=== PATIENT | female | born 1975 | race Caucasian/White ===

== ENCOUNTER 2018-08-23 03:39 | Emergency (ER) | payer OTHER, SELFPAY ==
[2018-08-23 03:40] VITALS: BP 98/67; PULSE 96; RESP 24; TEMP 36.6; O2SAT 99; BMI 33.5
[2018-08-23 03:45] VITALS: BP 98/67; PULSE 96; RESP 24; TEMP 36.6; O2SAT 99
--- NOTE | 2018-08-23 04:15 | CT_ITS ---
STUDY: CT ABDOMEN AND PELVIS WITHOUT CONTRAST REASON FOR EXAM: Female, 43 years old. Right flank pain. Nausea and vomiting RADIATION DOSAGE (If Supplied By Facility): CTDIvol = ( 16.38 ) mGy, DLP = ( 880.11 ) mGycm TECHNIQUE: Transaxial images were obtained from the dome of the diaphragm to the symphysis pubis without oral contrast, and without intravenous contrast. Sagittal and coronal images were reconstructed. Individualized dose optimization techniques were used for this CT. COMPARISON: None. FINDINGS: The visualized lung bases are unremarkable. The visualized portions of the heart are within normal limits. Normal liver. There are surgical clips in the gallbladder fossa consistent with a prior cholecystectomy. Normal spleen. Normal pancreas. Normal bilateral adrenal glands. Normal right kidney. Normal left kidney. Normal visualized stomach. Normal small intestine. There are multiple colonic diverticula consistent with diverticulosis. The appendix is visualized and appears normal. Normal abdominal aorta. Normal inferior vena cava. Normal retroperitoneum. Normal urinary bladder. Normal abdominal wall. Normal osseous structures. CT/Abdomen/Pelvis without Cont IMPRESSION: Colon diverticulosis without evidence of diverticulitis. Electronically Signed: Anmol Alba, at 5:27 EDT Tel , Service support ,
--- NOTE | 2018-08-23 04:16 | ED.VIS.GEN ---
History of Present Illness Chief Complaint: Abd Pain Informant: Patient Onset: Days - 2 Context: Gradual Onset Timing: Continuous Quality: ache and sharp Location: upper abd and right side, radiating into right low back/flank Current Severity: Severe Maximum Severity: Severe Worsened by: nothing Relieved by: nothing Associated Symptoms: n/v/d - watery nonbloody diarrhea. nonbloody emesis. Narrative: Subjective fevers and chills earlier. Initially felt like she had the stomach flu, but then pain started after the vomiting and diarrhea, and feels more like an episode of diverticulitis that she had on the right side of her abdomen/colon around 2 years ago. - Past Medical History (1) Asthma Status: Chronic (2) Chronic back pain Status: Chronic (3) Depression with anxiety Status: Chronic (4) Fibromyalgia Status: Chronic (5) History of DVT of lower extremity Status: Chronic (6) Migraine Status: Chronic Past Medical History - Allergies and Home Meds Allergies/Adverse Reactions: Allergies Iodinated Contrast- Oral and IV Dye [Iodinated Contrast Media - IV Dye] Allergy (Verified 08/23/18 03:45) Other BP DROPS OK WITH PRE-MEDS terbutaline sulfate [From Brethine] Allergy (Verified 08/23/18 03:45) Other BP DROPS Primary Care Physician: Care Physician,No Primary [Primary Care Provider] - Surgical History: adenoidectomy, cholecystectomy, hysterectomy, tonsillectomy, - - Cholecystectomy, T+A, BLTL, cataract, dental surgery. Smoking Status: Never smoker Drugs: None - Family History Maternal Family History: Reports: Cancer - Breast CA, Diabetes, Heart Disease Paternal Family History: Reports: No pertinent history Review of Systems General: Reports: Chills, Fever, Malaise. Denies: Sweats Eyes: Denies: Visual changes - bilaterally, Diplopia ENT: Denies: Rhinorrhea, Sore throat Cardiovascular: Denies: Chest pain, Palpitations Respiratory: Denies: Dyspnea, Cough, Dyspnea on exertion Gastrointestinal: Reports: Abdominal pain, Nausea, Vomiting, Diarrhea. Denies: Melena, Hematochezia Genitourinary: Denies: Dysuria, Hematuria, Frequency Musculoskeletal: Reports: Back pain. Denies: Neck pain, Swelling, Extremity Pain Skin: Denies: Rash, Wounds Neurological: Denies: Headache, Weakness, Numbness Physical Exam Vital Signs/Narrative: Vital Signs Temp Pulse Resp BP Pulse Ox 08/23/18 03:45 97.8 F 96 24 H 99 08/23/18 03:40 97.8 F 96 24 H 99 Inital Vital Signs reviewed: Yes General: Well nourished, Well developed, No Acute Distress Head: Normocephalic, Atraumatic Eyes: Perrl, EOMI ENT: Moist mucous membranes, No rhinorrhea Neck: Supple, Nontender Cardiovascular: Regular rate, Regular rhythm, No murmurs, Normal S1, Normal S2. Negative for: Tachycardia Respiratory: No distress, CTA bilaterally, Chest nontender Abdomen: Soft, Nondistended, Normal bowel sounds, Tender - throughout R abd and across upper abd; worst RUQ., Guarding - vol, RUQ only. Negative for: Rebound tenderness Back: Nontender, Normal Inspection. Negative for: CVA tenderness Extremities: Nontender, No edema Skin: Normal color, No rash, No Trauma Neurological: Alert, Oriented x3, Cranial nerves II-XII grossly intact, Normal Strength, Normal Sensation Psychological: Normal affect, Normal Mood Diagnostic/Tx/Re-eval Impressions Abdomen/Pelvis CT 08/23/18 04:15 IMPRESSION: Colon diverticulosis without evidence of diverticulitis. Electronically Signed: Anmol Alba, at 5:27 EDT Tel , Service support , 08/23/18 04:15 Abdomen/Pelvis without Cont [CT] Stat Laboratory Results 08/23/18 08/23/18 03:58 03:58 WBC 8.5 RBC 4.98 Hgb 14.5 Hct 42.7 MCV 85.7 MCH 29.1 MCHC 34.0 RDW 13.7 RDW Differential 41.8 Plt Count 292 MPV 10.1 Immature Gran % (Auto) 0.100 Neut % (Auto) 84.5 H Lymph % (Auto) 10.5 L Anderson % (Auto) 2.9 Eos % (Auto) 1.8 Baso % (Auto) 0.2 Absolute Neuts (auto) 7.2 Absolute Lymphs (auto) 0.89 Total Counted Not Reportable Sodium 141 Potassium 3.4 L Chloride 109 H Carbon Dioxide 26.0 Anion Gap 6 BUN 12 Creatinine 0.93 Estim Creat Clear Calc 77.06 Est GFR (MDRD) Af Amer 84 Est GFR (MDRD) Non-Af 69 BUN/Creatinine Ratio 12.9 Glucose 101 Calcium 8.4 L Total Bilirubin 0.40 AST 12 L ALT 17 Alkaline Phosphatase 73 Total Protein 7.5 Albumin 3.6 Globulin 3.9 Albumin/Globulin Ratio 0.9 Lipase 123 - Medical Decision Making Labs are unremarkable, no significant leukocytosis, and CT, which was performed without contrast due to an IV dye allergy, shows no evidence of diverticulitis although diverticulosis is noted. There is also no acute other pathology. She is improved after IV fluids, Zofran, and morphine although she is still having some discomfort and nausea. No more vomiting. She will be additionally given Phenergan and Bentyl, along with prescriptions for this. 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 Advised to follow-up with symptoms do not resolve after the weekend. She is comfortable with the plan. ED Disposition - Plan for ED Patient: Disposition: Home or Assisted Living Diagnosis: Gastroenteritis, Right sided abdominal pain, Diverticulosis Instructions: ED Gastroenteritis Viral, Abdominal Pain Prescriptions: Dicyclomine HCl [Bentyl] 20 mg PO Q6H PRN PRN #20 cap PRN Reason: abdominal cramping proMETHazine tablet [Phenergan] 25 mg PO Q6H PRN PRN #12 tab PRN Reason: Nausea Referrals: Wilian Charles MD [STAFF PHYSICIAN] - 3-5 Days if not improving
[2018-08-23] MEDS: Morphine 4 MG/ML Syringe IV (04:28)
[2018-08-23] MEDS: Ondansetron 4 MG/2 ML Vial IV (04:28)
[2018-08-23] MEDS: 0.9% Normal Saline 1,000 ML 1000 ML IV (04:28)
[2018-08-23 04:36] LABS: Absolute Lymphocyte Count 0.89 X10^3/ul (0.83-4.51); Absolute Neutrophil Count 7.2 X10^3/uL (2.0-7.7); Basophil# 0.02 X10^3/uL; Basophil% 0.2 % (0-1); Eosinophil# 0.15 X10^3/uL; Eosinophils% 1.8 % (0-5); Hematocrit 42.7 % (37-47); Hemoglobin 14.5 g/dl (12.0-15.0); Lymphocyte # 0.89 X10^3/ul (4.0); Lymphocyte % 10.5 % (19-41); Mean Corpuscular Hgb 29.1 pg (27.0-32.0); Mean Corpuscular Volume 85.7 fL (81-99); Mean Platelet Vol. 10.1 fl (6.2-12.0); Monocyte# 0.25 X10^3/uL; Monocyte% 2.9 % (0-10); Neutrophil # 7.17 X10^3/uL (2.7-7.7); Neutrophil % 84.5 % (47-70); Platelet Count 292 K/mm3 (150-450); RBC Distribution Width CV 13.7 % (11.6-14.6); RBC Distribution Width SD 41.8 fl (35.1-43.9); Red Blood Count 4.98 M/mm3 (4.2-5.4); White Blood Count 8.5 K/mm3 (4.4-11.0)
[2018-08-23 04:37] LABS: POSITIVE COUNT NO; POSITIVE DIFFERENTIAL NO; POSITIVE MORPHOLOGY NO
[2018-08-23 04:50] LABS: ALB/GLOB Ratio 0.9 RATIO (0.9-2.4); AST(SGOT) 12 U/L (15-37); Alanine Aminotransfer ALT/SGPT 17 U/L (13-56); Albumin, Serum 3.6 g/dL (3.2-5.0); Alkaline Phosphatase 73 U/L (45-117); Anion Gap 6 (5-15); BUN 12 mg/dL (7-18); BUN/Creat Ratio 12.9 RATIO (10-20); Calcium,Total 8.4 mg/dL (8.5-10.1); Chloride 109 mmol/L (98-107); Creatinine, Serum 0.93 mg/dL (0.55-1.02); EST Glomerular Filtration Rate 69 mL/min (>60); Est Glom Filt Rate - Afr Amer 84 mL/min (>60); Estimated Creatinine Clearance 77.06 ml/min; Globulin 3.9 g/dL (2.2-4.2); Glucose 101 mg/dL (74-106); Lipase 123 U/L (73-393); Potassium 3.4 mmol/L (3.5-5.1); Protein, Total 7.5 g/dL (6.4-8.2); Sodium Level 141 mmol/L (136-145)
[2018-08-23] MEDS: proMETHazine 25 MG/ML Syringe 6.25 MG IV (06:02)
[2018-08-23 06:04] VITALS: BP 94/55; PULSE 72; RESP 18; O2SAT 94
[2018-08-23] MEDS: Dicyclomine 10 MG Capsule PO (06:31)
--- NOTE | 2018-08-23 07:39 | ED.RN ---
pt resting quietly. woke pt, pt remains sleepy. states theres no way i can drive. pt reports no one was responding to her calls then she fell asleep. pt attempting to call again at this time
--- NOTE | 2018-08-23 08:00 | ED.RN ---
to be here at 0800. getting dressed.
== END 2018-08-23 08:13 | disposition home or self-care (01) ==
PROVIDERS: Emergency Provider Emergency Medicine
DX: K52.9 Noninfective gastroenteritis and colitis, unspecified (principal); K57.90 Diverticulosis of intestine, part unspecified, without perforation or abscess without bleeding; R10.9 Unspecified abdominal pain; Z90.49 Acquired absence of other specified parts of digestive tract; J45.909 Unspecified asthma, uncomplicated; M54.9 Dorsalgia, unspecified; G89.29 Other chronic pain; G43.809 Other migraine, not intractable, without status migrainosus; F41.8 Other specified anxiety disorders; M79.7 Fibromyalgia; Z86.718 Personal history of other venous thrombosis and embolism
CPT/HCPCS: 74176; 80053; 83690; 85025; 96361; 96374; 96375; 99284; J7030; J2405

== ENCOUNTER 2018-11-12 20:13 | Emergency (ER) | payer OTHER, SELFPAY ==
[2018-11-12 20:13] VITALS: BP 132/97; PULSE 94; RESP 22; TEMP 36.7; O2SAT 100; BMI 36.5
[2018-11-12] MEDS: LORazepam 1 MG Tablet PO (20:59)
--- NOTE | 2018-11-12 21:43 | ED.VISSUMM ---
- ER Visit Summary Date of Service: 11/12/18 Chief Complaint: Panic attack History of Present Illness: The patient is a 43 F with a panic attack. This was prompted by finding unresponsive patient in our parking lot. She was here with her son who is also a patient. He is here for mental health evaluation, and she is very stressed about this as well. She has a history of panic attack. Denies any other associated symptoms. Denies any suicidality. Physical Examination: Afebrile and vital signs unremarkable. Patient appears anxious and mildly tearful. She is otherwise alert and oriented. Heart regular. Lungs clear. Patient denies suicidal thoughts. Test Results: None indicated Emergency Department Course and Treatment: Patient was treated with Ativan. She responded well and was feeling better on reevaluation. I believe she is appropriate for further outpatient care. Return for any new or worsening issues. Treatment Plan: As above Disposition: Discharge Impression: 1. Panic episode This note was generated with [employer] dictation software. It may contain incorrect words, spelling, and punctuation that were not noted in review of the chart prior to signing ED Disposition - Plan for ED Patient: Referrals: Care Physician,No Primary [Primary Care Provider] -
--- NOTE | 2018-11-12 21:44 | ED.DEP ---
ED Disposition - Plan for ED Patient: Instructions: ED Panic Attack Referrals: Care Physician,No Primary [Primary Care Provider] -
== END 2018-11-12 22:28 | disposition home or self-care (01) ==
LOC: ED 21:34
PROVIDERS: Emergency Provider Emergency Medicine
DX: F41.0 Panic disorder [episodic paroxysmal anxiety] (principal); Z86.718 Personal history of other venous thrombosis and embolism; Z79.899 Other long term (current) drug therapy
CPT/HCPCS: 99283

== ENCOUNTER 2019-09-19 07:26 | Emergency (ER) | payer OTHER, SELFPAY ==
[2019-09-19 07:27] VITALS: BP 126/94; PULSE 88; RESP 16; TEMP 36.9; O2SAT 99; BMI 38.0
--- NOTE | 2019-09-19 07:43 | ED.DCSUM_ITS ---
- ER Visit Summary Date of Service: 09/19/19 Chief Complaint: [Right shoulder pain, right back pain, and dysuria] History of Present Illness: The patient is a 44 F [presents to the emergency department some discomfort in her back for 3 days that is been intermittent. Patient states the pain is sharp and stabbing and can last up to 15 minutes at a time. Patient also has had some mild dysuria. She is concerned because she has had issues with kidney stones and had a stent last January. Patient also woke up this morning with severe pain in her right shoulder that is worse with movement. Patient states that she has had problems and pain with her right shoulder from prior injury which caused a partial tear in her rotator cuff years ago related to a fall. She denies any new injury. Pain is severe and worse with movement. Patient did take 4 Advil at home. Patient denied any chest pain or shortness of breath and just feels like she may be a little bit anxious. Patient has history of asthma, obesity, DVT history, kidney stone history, migraine history, history of factor V Leiden deficiency. Patient not currently anticoagulated. She denies recent travel or surgery. She denies any fever. She denies any cough.] Physical Examination: [HEENT-PERRLA, EOMI. Cranial nerves II through XII grossly intact. TMs clear. Mucous membranes moist. No adenopathy. Cardiovascular-regular rate and rhythm without murmur or ectopy Lungs-clear to auscultation, chest wall stable without crepitus or subcu emphysema Abdomen-normoactive bowel sounds, soft, nontender, no rebound or rigidity, no peritoneal signs. Patient has some mild CVA tenderness on the right. Extremities-intact ?4, normal range of motion, normal pulses, atraumatic. Right shoulder-patient has diffuse tenderness over the right glenohumeral joint. Patient has some tenderness over the right trapezius and to the right cervical paraspinal musculature. Patient has pain with range of motion at the glenohumeral joint. She is neurovascularly intact. Extremities atraumatic.] Test Results: [Urinalysis obtained showed 100 leukocyte esterase as well as 10- 25 WBCs and +2 bacteria. Patient also had 10-25 epithelial cells.] Emergency Department Course and Treatment: [Given that patient symptomatic with some signs of urinary tract infection will treat with Bactrim for 3 days. Patient will be given a prescription for [place] for her shoulder pain.] Treatment Plan: [Patient will be treated with Bactrim and [place]. Patient referred to her orthopedic surgeon Dr. Mik Lundy for follow-up regarding her shoulder pain. I do not feel any imaging is indicated at this time.] Disposition: [Discharged home in stable condition] Impression: [UTI Right shoulder pain-acute on chronic] This note was generated with [employer] dictation software. It may contain incorrect words, spelling, and punctuation that were not noted in review of the chart prior to signing ED Disposition - Plan for ED Patient: Referrals: Care Physician,No Primary [Primary Care Provider] -
[2019-09-19 08:02] LABS: Mucous, Urine 0 SEEN /hpf (<or=2+); Red Blood Cells-Urine 0 SEEN /hpf (0-5)
[2019-09-19 08:12] LABS: Color, Urine Yellow (Yellow); Glucose, Dipstick Normal (Normal); Ketone-Dipstick Negative (Negative); Leukocyte Esterase-Dipstick 100 /ul (Negative); Nitrite-Dipstick Negative (Negative); Occult Blood-Urine 50 /ul (Negative); Protein-Dipstick 15 mg/dl (Negative); Specific Gravity, Urine 1.015 (1.002-1.030); Urine Bilirubin Dipstick Negative (Negative); Urine Clarity Sl. Cloudy (Clear); Urine Urobilinogen Normal (Normal)
[2019-09-19 08:22] LABS: Bacteria 2+ /hpf (None Seen); Squamous Epithelial Cells - UA 10-25 SEEN /hpf (5-10); White Blood Cells 10-25 SEEN /hpf (0-5)
--- NOTE | 2019-09-19 08:29 | ED.DEP ---
ED Disposition - Plan for ED Patient: Instructions: ED CYSTITIS Female Adult, ED Shoulder Pain Uncertain Cause Prescriptions: Smz/Tmp Ds [Bactrim Ds] 1 tab PO BID #6 tab Prescription Printed Hydrocodone Bitart/Apap 5-325 [[place] 5MG-325MG] 1 tab PO Q4H PRN PRN 2 Days #10 tab PRN Reason: Pain Prescription Printed Referrals: Care Physician,No Primary [Primary Care Provider] - 3-5 Days Mik Lundy DO [STAFF PHYSICIAN] - 3-5 Days
[2019-09-19] MEDS: Smz/Tmp Ds Tablet 1 TABLET PO (08:43)
== END 2019-09-19 08:46 | disposition home or self-care (01) ==
PROVIDERS: Emergency Provider Emergency Medicine
DX: N39.0 Urinary tract infection, site not specified (principal); M25.511 Pain in right shoulder; G89.29 Other chronic pain; D68.51 Activated protein C resistance; J45.909 Unspecified asthma, uncomplicated; Z86.718 Personal history of other venous thrombosis and embolism; Z87.442 Personal history of urinary calculi
CPT/HCPCS: 81001; 99283

== ENCOUNTER 2020-03-28 07:53 | Day surgery (SDC) | payer OTHER, SELFPAY ==
[2020-03-28] VITALS (7 sets, daily range): BP systolic 86–112; BP diastolic 53–74; PULSE 68–87; RESP 14–17; TEMP 36.7–37.6; O2SAT 91–96; BMI 37.7
--- NOTE | 2020-03-28 07:14 | RAD_ITS ---
PROCEDURE: Right C4-C7 facet joint block. DATE OF EXAMINATION: 03/28/2020 INDICATION: Female, 44 years old. Chronic neck pain. FLUOROSCOPY TIME (if supplied): (6 seconds) minutes/seconds. 5 intraoperative views were obtained. Intraoperative imaging provided for right C4-C7 facet joint block. RAD/Cerv Spine 2 or 3 Views IMPRESSION: Intraoperative imaging provided for right C4-C7 facet joint block. Electronically Signed: Issa Win, at 12:40 EDT , Service support ,
[2020-03-28] MEDS: Lactated Ringers 1,000 ML 100 ML IV (08:36)
[2020-03-28] MEDS: Bupivacaine 0.25% 30 ML Vial (09:05)
[2020-03-28] MEDS: MethylPREDNISolone Acetate 80 MG/ML Vial (09:05)
--- NOTE | 2020-03-28 16:25 | OP.PCM_ITS ---
Report of Operation Date of Procedure: 03/28/20 Description of Surgical Findings:: PREOPERATIVE DIAGNOSIS: Cervical spondylosis, cervical degenerative disc disease, cervical facet arthropathy POSTOPERATIVE DIAGNOSIS: Cervical spondylosis, cervical degenerative disc disease, cervical facet arthropathy PROCEDURE PERFORMED: Right-sided cervical facet steroid injection, C4, C5, C6, and C7. ANESTHESIA: MAC. BLOOD LOSS: Minimal. COMPLICATIONS: None. DESCRIPTION OF PROCEDURE: History and physical of today was reviewed. Risks and benefits of the procedure were explained. The patient understood and agreed to proceed. Informed consent was obtained. IV inserted per routine protocol. The patient was taken to the operating room and placed in the prone position with a pillow positioned underneath the chest. The neck area was prepped and draped in a sterile fashion using iodine x3. Under fluoroscopy guidance on an AP view, the C4 through C7 vertebral bodies were visualized at approximately 10- degree angle, starting on the RightC4, ending on the Right C7, passing through the C5 and C6. Using a 25-gauge 3-1/2-inch spinal needle, the needle was advanced via the skin. The tip of the needle was maneuvered and directed towards the epiphyseal junction of each corresponding vertebra. Once the tip of the needle was at the vicinity of the medial branch, the needle was pulled approximately 2 mm off the bone. After negative aspiration of blood or CSF and confirmation on AP, oblique as well as lateral view, a total of 4 mL of preservative-free 0.25% Marcaine with 80 mg of Depo-Medrol was injected in divided doses between those four levels. The needles were then removed intact. The patient experienced no sign or symptoms of intrathecal or intravascular injection. The patient experienced no paresthesia. The procedure was completed without any apparent difficulty or any complications. The patient appeared to tolerate it well. ASSESSMENT AND PLAN: This is a 44-year-old female with cervical spondylosis, cervical degenerative disc disease, cervical facet arthropathy status post right-sided cervical facet steroid injection C4-C7, patient will continue her current medications, patient will phone approximately 2 weeks for reevaluation.
== END 2020-03-28 10:13 | disposition home or self-care (01) ==
LOC: SDC 07:55 → AC 07:57
PROVIDERS: Referring Provider Anesthesiology Pain Medicine; Visit Provider Anesthesiology Pain Medicine
PROC: 3E0U3BZ Introduction of Anesthetic Agent into Joints, Percutaneous Approach (ICD-10-PCS; CPT 64490; principal; 2020-03-28 09:15)
DX: M47.812 Spondylosis without myelopathy or radiculopathy, cervical region (principal); G89.29 Other chronic pain; M79.7 Fibromyalgia; Z86.718 Personal history of other venous thrombosis and embolism; M54.12 Radiculopathy, cervical region; M48.02 Spinal stenosis, cervical region; M48.9 Spondylopathy, unspecified; M54.2 Cervicalgia; Z79.899 Other long term (current) drug therapy
CPT/HCPCS: 64491; 64492; 64490; 72040; J7120

== ENCOUNTER 2020-05-16 10:23 | Day surgery (SDC) | payer OTHER, SELFPAY ==
[2020-03-28 08:19] VITALS: BMI 37.7
[2020-05-16 10:30] VITALS: BP 110/75; PULSE 86; RESP 16; TEMP 37.3; O2SAT 96; BMI 37.6
--- NOTE | 2020-05-16 11:30 | RAD_ITS ---
STUDY: X-RAY - CERVICAL SPINE REASON FOR EXAM: Female, 45 years old. CERVICAL FACETS STEROID INJECTIONS C4-7 LEFT TECHNIQUE: 3 view(s) of the cervical spine were obtained. COMPARISON: None FINDINGS: Intraoperative imaging provided for left C4-C7 facet joint steroid injection. RAD/Cerv Spine 2 or 3 Views IMPRESSION: Intraoperative imaging provided for left C4-C7 facet steroid injection. Electronically Signed: Issa Win, at 15:44 EST , Service support ,
[2020-05-16] MEDS: Lactated Ringers 1,000 ML 100 ML IV (11:35)
[2020-05-16] MEDS: Bupivacaine 0.25% 30 ML Vial (11:38)
[2020-05-16] MEDS: MethylPREDNISolone Acetate 40 MG/ML Vial IM (11:41)
--- NOTE | 2020-05-16 11:44 | OP.PCM_ITS ---
Report of Operation Date of Procedure: 05/16/20 Description of Surgical Findings:: PREOPERATIVE DIAGNOSIS: Cervical spondylosis, cervical degenerative disc disease, cervical facet arthropathy POSTOPERATIVE DIAGNOSIS: Cervical spondylosis, cervical degenerative disc disease, cervical facet arthropathy PROCEDURE PERFORMED: Left-sided cervical facet steroid injection, C4, C5, C6, and C7. ANESTHESIA: MAC. BLOOD LOSS: Minimal. COMPLICATIONS: None. DESCRIPTION OF PROCEDURE: History and physical of today was reviewed. Risks and benefits of the procedure were explained. The patient understood and agreed to proceed. Informed consent was obtained. IV inserted per routine protocol. The patient was taken to the operating room and placed in the prone position with a pillow positioned underneath the chest. The neck area was prepped and draped in a sterile fashion using iodine x3. Under fluoroscopy guidance on an AP view, the C4 through C7 vertebral bodies were visualized at approximately 10- degree angle, starting on the left C4, ending on the left C7, passing through the C5 and C6. Using a 25-gauge 3-1/2-inch spinal needle, the needle was advanced via the skin. The tip of the needle was maneuvered and directed towards the epiphyseal junction of each corresponding vertebra. Once the tip of the needle was at the vicinity of the medial branch, the needle was pulled approximately 2 mm off the bone. After negative aspiration of blood or CSF and confirmation on AP, oblique as well as lateral view, a total of 4 mL of preservative-free 0.25% Marcaine with 80 mg of Depo-Medrol was injected in divided doses between those four levels. The needles were then removed intact. The patient experienced no sign or symptoms of intrathecal or intravascular injection. The patient experienced no paresthesia. The procedure was completed without any apparent difficulty or any complications. The patient appeared to tolerate it well. ASSESSMENT AND PLAN: This is a 45-year-old female with cervical spondylosis, cervical degenerative disc disease, cervical facet arthropathy status post left-sided cervical facet steroid injection C4-C7, patient will continue her current medications, patient will follow in approximately 2 weeks for reevaluation.
[2020-05-16 11:55] VITALS: BP 110/75; BP 125/88; BP 146/88; PULSE 78; PULSE 85; RESP 16; TEMP 36.3; O2SAT 96
[2020-05-16 12:01] VITALS: BP 110/75
[2020-05-16 12:10] VITALS: BP 110/75; BP 123/91; PULSE 80; RESP 16; O2SAT 100
[2020-05-16 12:31] VITALS: BP 110/75
== END 2020-05-16 12:33 | disposition home or self-care (01) ==
LOC: SDC 10:24 → AC 10:24
PROVIDERS: Referring Provider Anesthesiology Pain Medicine; Visit Provider Anesthesiology Pain Medicine
PROC: 3E0U3BZ Introduction of Anesthetic Agent into Joints, Percutaneous Approach (ICD-10-PCS; CPT 64490; principal; 2020-05-16 11:25)
DX: M47.812 Spondylosis without myelopathy or radiculopathy, cervical region (principal); Z86.718 Personal history of other venous thrombosis and embolism; Z87.442 Personal history of urinary calculi; D68.51 Activated protein C resistance; M54.12 Radiculopathy, cervical region; M48.02 Spinal stenosis, cervical region; M48.9 Spondylopathy, unspecified; M54.2 Cervicalgia; Z79.899 Other long term (current) drug therapy
CPT/HCPCS: 64491; 64490; 72040; J7120

== ENCOUNTER 2020-06-27 08:01 | Day surgery (SDC) | payer OTHER, SELFPAY ==
[2020-06-27] VITALS (8 sets, daily range): BP systolic 108–133; BP diastolic 63–86; PULSE 86–107; RESP 16; TEMP 36.9–37.1; O2SAT 94–97; BMI 38.0
[2020-06-27] MEDS: Lactated Ringers 1,000 ML 100 ML IV (08:40)
--- NOTE | 2020-06-27 09:35 | OP.PCM_ITS ---
Report of Operation Date of Procedure: 06/27/20 Description of Surgical Findings:: PREOPERATIVE DIAGNOSIS: Cervical spondylosis, cervical degenerative disc disease, cervical facet arthropathy POSTOPERATIVE DIAGNOSIS: Cervical spondylosis, cervical degenerative disc disease, cervical facet arthropathy PROCEDURE PERFORMED: Right-sided cervical facet steroid injection, C4, C5, C6, and C7. ANESTHESIA: MAC. BLOOD LOSS: Minimal. COMPLICATIONS: None. DESCRIPTION OF PROCEDURE: History and physical of today was reviewed. Risks and benefits of the procedure were explained. The patient understood and agreed to proceed. Informed consent was obtained. IV inserted per routine protocol. The patient was taken to the operating room and placed in the prone position with a pillow positioned underneath the chest. The neck area was prepped and draped in a sterile fashion using iodine x3. Under fluoroscopy guidance on an AP view, the C4 through C7 vertebral bodies were visualized at approximately 10- degree angle, starting on the RightC4, ending on the Right C7, passing through the C5 and C6. Using a 25-gauge 3-1/2-inch spinal needle, the needle was advanced via the skin. The tip of the needle was maneuvered and directed towards the epiphyseal junction of each corresponding vertebra. Once the tip of the needle was at the vicinity of the medial branch, the needle was pulled approximately 2 mm off the bone. After negative aspiration of blood or CSF and confirmation on AP, oblique as well as lateral view, a total of 4 mL of preservative-free 0.25% Marcaine with 80 mg of Depo-Medrol was injected in divided doses between those four levels. The needles were then removed intact. The patient experienced no sign or symptoms of intrathecal or intravascular injection. The patient experienced no paresthesia. The procedure was completed without any apparent difficulty or any complications. The patient appeared to tolerate it well. ASSESSMENT AND PLAN: This is a 45-year-old female with cervical spondylosis, cervical degenerative disc disease, cervical facet arthropathy status post right-sided cervical facet steroid injection C4-C7, patient will continue her current medications, patient will follow up in approximately 2 weeks for reevaluation.
--- NOTE | 2020-06-27 09:39 | RAD_ITS ---
PROCEDURE: Right cervical facet injection C4-C7. DATE OF EXAMINATION: 06/27/2020. INDICATION: Female, 45 years old. Chronic neck pain. FLUOROSCOPY TIME (if supplied): (8.7 seconds) minutes/seconds. 4 images were submitted. RAD/Cerv Spine 4 or 5 Views IMPRESSION: Intraoperative imaging provided for right C4-C7 cervical facet injection. Electronically Signed: Issa Win MD at 8:53 EST , Service support ,
[2020-06-27] MEDS: MethylPREDNISolone Acetate 40 MG/ML Vial IM (09:50)
[2020-06-27] MEDS: Bupivacaine 0.25% 30 ML Vial (09:51)
== END 2020-06-27 10:43 | disposition home or self-care (01) ==
LOC: SDC 08:02 → AC 08:02
PROVIDERS: Referring Provider Anesthesiology Pain Medicine; Visit Provider Anesthesiology Pain Medicine
PROC: 3E0U3BZ Introduction of Anesthetic Agent into Joints, Percutaneous Approach (ICD-10-PCS; CPT 64490; principal; 2020-06-27 09:35)
DX: M47.812 Spondylosis without myelopathy or radiculopathy, cervical region (principal); G89.29 Other chronic pain; M79.7 Fibromyalgia; Z87.442 Personal history of urinary calculi; Z86.718 Personal history of other venous thrombosis and embolism; M54.12 Radiculopathy, cervical region; M48.02 Spinal stenosis, cervical region; M48.9 Spondylopathy, unspecified; M54.2 Cervicalgia; Z79.899 Other long term (current) drug therapy
CPT/HCPCS: 64491; 64490; 72050; J7120; J2405

== ENCOUNTER 2020-08-22 06:22 | Day surgery (SDC) | payer OTHER, SELFPAY ==
[2020-06-27 08:35] VITALS: BMI 38.0
[2020-08-22] VITALS (14 sets, daily range): BP systolic 104–127; BP diastolic 78–104; PULSE 81–99; RESP 16–20; TEMP 36.2–37.3; O2SAT 92–99; BMI 38.0
[2020-08-22] MEDS: Lactated Ringers 1,000 ML 100 ML IV (07:09)
--- NOTE | 2020-08-22 07:32 | RAD_ITS ---
PROCEDURE: Right C4-C7 radiofrequency ablation. DATE OF EXAMINATION: 08/22/2020. INDICATION: Female, 45 years old. Chronic neck pain. FLUOROSCOPY TIME (if supplied): (32.4 seconds) minutes/seconds. 11 images were obtained. Intraoperative imaging provided for right C4-C7 radiofrequency ablation. RAD/Cerv Spine 2 or 3 Views IMPRESSION: Intraoperative imaging provided for right C4-C7 radiofrequency ablation. Electronically Signed: Issa Win MD at 9:33 EDT , Service support ,
[2020-08-22] MEDS: Lidocaine 1% (30 ml sdv) 30 ML Vial (07:45)
[2020-08-22] MEDS: MethylPREDNISolone Acetate 40 MG/ML Vial IM (07:45)
[2020-08-22] MEDS: Bupivacaine 0.25% 30 ML Vial (07:45)
--- NOTE | 2020-08-22 12:00 | OP.PCM_ITS ---
Report of Operation Date of Procedure: 08/22/20 Description of Surgical Findings:: PREOPERATIVE DIAGNOSIS: Cervical spondylosis, cervical degenerative disc disease, cervical facet arthropathy POSTOPERATIVE DIAGNOSIS: Cervical spondylosis, cervical degenerative disc disease, cervical facet arthropathy PROCEDURE PERFORMED: Right-sided cervical radiofrequency ablation of the medial branch at C4, C5, C6, and C7. ANESTHESIA: MAC. BLOOD LOSS: Minimal. COMPLICATIONS: None. DESCRIPTION OF PROCEDURE: History and physical of today was reviewed. Risks and benefits of the procedure were explained. The patient understood and agreed to proceed. Informed consent was obtained. IV inserted per routine protocol. The patient was taken to the operating room and placed in the prone position with a pillow positioned underneath the chest. The neck area was prepped and draped in a sterile fashion using iodine x3. Under fluoroscopy guidance on an AP view, the C4 through C7 vertebral bodies were visualized. The skin and subcu taneous tissue was anesthetized with approximately 10 mL of 1% lidocaine using a 25-gauge regular needle. Under direct visualization on fluoroscopy on a lateral view, using a 21-gauge 10-cm with a 10-mm curved active-tip radiofrequency ablation needle, the needle was passed through the skin. The tip of the needle was maneuvered and directed towards the epiphyseal junction of each corresponding vertebra, starting on the right C4, ending on the right C7, passing through the C5 and C6. Once the tip of the needle was at the vicinity of the medial branch and at the middle of the trapezoid on the lateral view, the stylette of each needle was then removed. After negative aspiration of blood or CSF and confirmation on AP, oblique as well as lateral view, radiofrequency ablation probe was then inserted at each level. Impedance was then recorded at C4 to be 314 ohm, at C5 to be 288 ohm, at C6 to be 281 ohm, and at C7 to be 274 ohm. Motor-evoked potential was then initiated to 1.5 volt without any motor response to each corresponding level or the right arm. The probe was then removed intact and a total of 4 mL of preservative-free 1% lidocaine was injected in divided doses between those four levels after negative aspiration of blood or CSF. After repeated confirmation, the radiofrequency ablation probe was then inserted and after repeated confirmation on AP, oblique as well as lateral view, radiofrequency ablation was then initiated to approximately 80 degree Celsius for 60 second at each level. Once concluded, the probe was then removed intact. A total of 4 mL of preservative-free 0.25% Marcaine with 40 mg of Depo-Medrol was injected in divided doses between those four levels. The needles were then removed intact. The patient experienced no sign or symptoms of intrathecal or intravascular injection. The patient experienced no paresthesia. The procedure was completed without any apparent difficulty or any complications. The patient appeared to tolerate it well. Sensory as well as motor exam was unchanged from prior to the procedure. ASSESSMENT AND PLAN: This is a 45-year-old female with cervical spondylosis, cervical degenerative disc disease, cervical facet arthropathy, status post right-sided cervical radiofrequency ablation of the medial branch at C4-C7, patient will continue her current medications, patient will follow in approximately 2 weeks for reevaluation.
== END 2020-08-22 10:33 | disposition home or self-care (01) ==
LOC: SDC 06:23 → AC 06:23
PROVIDERS: Referring Provider Anesthesiology Pain Medicine; Visit Provider Anesthesiology Pain Medicine
PROC: (CPT 64633; principal; 2020-08-22 07:15)
DX: M47.812 Spondylosis without myelopathy or radiculopathy, cervical region (principal); G89.29 Other chronic pain; M54.12 Radiculopathy, cervical region; M48.02 Spinal stenosis, cervical region; M48.9 Spondylopathy, unspecified; M54.2 Cervicalgia; Z79.899 Other long term (current) drug therapy; M79.7 Fibromyalgia; Z86.718 Personal history of other venous thrombosis and embolism; D68.51 Activated protein C resistance
CPT/HCPCS: 01936; 64633; 64634; 72040; 76000; J7120

== ENCOUNTER 2020-10-10 09:46 | Day surgery (SDC) | payer OTHER, SELFPAY ==
[2020-08-22 06:58] VITALS: BMI 38.0
[2020-10-10] VITALS (8 sets, daily range): BP systolic 120–133; BP diastolic 83–93; PULSE 76–92; RESP 16; TEMP 36.4–37.7; O2SAT 92–97; BMI 36.6
[2020-10-10] MEDS: Lactated Ringers 1,000 ML 100 ML IV (10:37)
--- NOTE | 2020-10-10 10:54 | RAD_ITS ---
PROCEDURE: Left C4-C7 facet joint block. DATE OF EXAMINATION: 10/10/2020. INDICATION: Female, 45 years old. Chronic neck pain. FLUOROSCOPY TIME (if supplied): (10 seconds) minutes/seconds. 3 intraoperative images were obtained. RAD/Cerv Spine 4 or 5 Views IMPRESSION: Intraoperative imaging provided for left C4-C7 facet joint block. Electronically Signed: Issa Win MD at 15:13 EDT , Service support ,
[2020-10-10] MEDS: MethylPREDNISolone Acetate 80 MG/ML Vial (11:01)
[2020-10-10] MEDS: Bupivacaine 0.25% 30 ML Vial (11:01)
--- NOTE | 2020-10-10 15:24 | OP.PCM_ITS ---
Report of Operation Date of Procedure: 10/10/20 Pre-Operative Diagnosis: Cervical spondylosis, cervical degenerative disc disea se, cervical facet arthropathy Post-Operative Diagnosis: Cervical spondylosis, cervical degenerative disc disease, cervical facet arthropathy Surgery/Procedure Performed:: Left sided cervical facet steroid injection, C4, C5, C6, and C7. Description of Surgical Findings:: DESCRIPTION OF PROCEDURE: History and physical of today was reviewed. Risks and benefits of the procedure were explained. The patient understood and agreed to proceed. Informed consent was obtained. IV inserted per routine protocol. The patient was taken to the operating room and placed in the prone position with a pillow positioned underneath the chest. The neck area was prepped and draped in a sterile fashion using iodine x3. Under fluoroscopy guidance on an AP view, the C4 through C7 vertebral bodies were visualized at approximately 10- degree angle, starting on the left C4, ending on the left C7, passing through the C5 and C6. Using a 25-gauge 3-1/2-inch spinal needle, the needle was advanced via the skin. The tip of the needle was maneuvered and directed towards the epiphyseal junction of each corresponding vertebra. Once the tip of the needle was at the vicinity of the medial branch, the needle was pulled approximately 2 mm off the bone. After negative aspiration of blood or CSF and confirmation on AP, oblique as well as lateral view, a total of 4 mL of preservative-free 0.25% Marcaine with 80 mg of Depo-Medrol was injected in divided doses between those four levels. The needles were then removed intact. The patient experienced no sign or symptoms of intrathecal or intravascular injection. The patient experienced no paresthesia. The procedure was completed without any apparent difficulty or any complications. The patient appeared to tolerate it well. ASSESSMENT AND PLAN: This is a 45-year-old female with cervical spondylosis, cervical degenerative disc disease, cervical facet arthropathy status post left-sided cervical facet steroid injection C4-C7, patient will continue her current medications, patient will follow in approximately 2 weeks for reevaluation. Type of Anesthesia: MAC Estimated Blood Loss (mL): Minimal Complications None
== END 2020-10-10 12:09 | disposition home or self-care (01) ==
LOC: SDC 09:47 → AC 09:48
PROVIDERS: PCP Family Medicine Sports Medicine; Referring Provider Anesthesiology Pain Medicine; Visit Provider Anesthesiology Pain Medicine
PROC: 3E0U3BZ Introduction of Anesthetic Agent into Joints, Percutaneous Approach (ICD-10-PCS; CPT 64490; principal; 2020-10-10 11:15)
DX: M47.812 Spondylosis without myelopathy or radiculopathy, cervical region (principal); G89.29 Other chronic pain; D68.51 Activated protein C resistance; Z86.718 Personal history of other venous thrombosis and embolism; Z87.442 Personal history of urinary calculi; M54.12 Radiculopathy, cervical region; M48.02 Spinal stenosis, cervical region; M48.9 Spondylopathy, unspecified; Z79.899 Other long term (current) drug therapy
CPT/HCPCS: 64491; 64492; 64490; 72050; J7120

== ENCOUNTER 2021-06-12 07:54 | Day surgery (SDC) | payer OTHER, SELFPAY ==
[2021-06-12] VITALS (10 sets, daily range): BP systolic 96–135; BP diastolic 64–93; PULSE 84–104; RESP 16; TEMP 36.1–36.8; O2SAT 92–100; BMI 38.5
--- NOTE | 2021-06-12 07:58 | PCM.HP.BLA ---
History and Physical Date of Admission: 06/12/21 Chief Complaint: Medication refill History of Present Illness: This is a 46 Y/O female who was evaluated via phone for a follow up due pt's acute illness. Pain: neck,right shoulder,right hand Quality: constant,varies in intensity Region: Pain in the neck into the right shoulder and will radiate down right arm with numbness in her fingers. Severity: aching,occasional sharp,tingling/numbness Timin07/2013 but has gotten worse recently (fell on ice) Aggravated by: physical labor,moving things Relieved by: heat,rest,jacuzzi Pain score (out of 10): 810 Other info: Follow up for right side neck pain that radiates to bilateral shoulder but right is worse. States she has pain on left side as well but right is worse. Reports numbness in fingers on right hand. States she has trouble sleeping. Needs refills. Review of Systems: Reports a fever. and headache. Denies chills, vision or hearing problems.Reports weight loss.Notes SOB and chest pressure. No pnd, orthopnea, or peripheral edema.They note no lumps or swollen glands, no new rashes, changing moles, or change in bowel or bladder function. Mood has been stable. Past Medical History: h/o fibromyalgia h/o migraines h/o DVT (multiple) h/o mass in abdomen h/o sports related injury 1988 h/o softball injury to lt knee h/o rt shoulder,rt arm,rt hip,lt knee injury 06/22/13 (fall on ice) h/o heart rhythm issue (PVC) h/o kidney stones h/o anxiety h/o Factor V Leiden h/o tumor-pituitary gland 2020 s/p tubal ligation 1992 s/p lou eye cataract surgery 2010 s/p Cholecystectomy 2013 s/p adenoidectomy s/p left knee arthroscopy 2014 s/p hysterectomy s/p heart ablation 2019 Family History: ======== Structured Family History ======== Mother: Heart disease, Cancer, Bleeding disorder Social History: [Tobacco: Never smoker Pipe Smoker: No Cigar Smoker: No Chewing Tobacco User: No Electronic Cigarette User: No] Living situation: Occupation: Self employed Tobacco: Denies EtOH: Occasional Rec. drugs: Denies Allergies: Iodine, Breathine, Morphine Medications: 1) cyclobenzaprine 10 mg oral tablet, Take1 tablet by mouth tid prn 2) Cymbalta 60 mg oral delayed release capsule, Take 1 tablet by mouth once daily 3) Eliquis 5 mg oral tablet, Take 1 tablet by mouth 2 times a Day 4) gabapentin 400 mg oral capsule, 1 capsule po in am and 2 capsules in pm 5) Lidocaine Pain Relief 5% External Patch, apply 1 patch to the affected area daily 12 hrs on 12 hrs off 6) oxyCODONE 5 mg oral capsule, 1 tablet po up to bid as needed for BTP 7) temazepam 30 mg oral capsule, 1 capsule po qhs as needed for sleep Physical Examination: Wt: 259 lb Ht/Ln: 68 in BMI: 39.4 BP: 141/93 Pulse: 89 RR: 16 Temp: 96.6F Well nourished and well developed in no acute distress. Alert and oriented to person, place and time. Affect is normal and appropriate. Mucosa pink and moist. Respirations even and unlabored. Neck is supple without significant lymphadenopathy or thyromegaly. Abdomen soft & non-tender. No HSM or masses appreciated. Extremities show no cyanosis, clubbing, or edema. Bilateral cervical facet challenge is positive Cervical paraspinal muscle tenderness Cervical ROM is limited due to pain. Motor and sensory exam is unchanged. Goals: Health Concerns: Assessment & Plan: # Cervical spondylosis (M47.812): # Cervical radiculopathy (M54.12): # Cervical spinal stenosis (M48.02): # Arthropathy of cervical spine facet joint (M48.9): # Cervical facet joint pain (M54.2): # Other termite renewal inspector (current) drug therapy (Z79.899): PRESCRIBE: oxyCODONE 5 mg oral capsule, 1 tablet po up to bid as needed for BTP, # 30, RF: 0. (Transmitted by KAYLA KENYON NP) PRESCRIBE: gabapentin 400 mg oral capsule, 1 capsule po in am and 2 capsules in pm, # 90, RF: 0. (Transmitted by KAYLA KENYON NP) PRESCRIBE: cyclobenzaprine 10 mg oral tablet, Take1 tablet by mouth tid prn, # 50, RF: 0. (Transmitted by KAYLA KENYON NP) PRESCRIBE: Lidocaine Pain Relief 5% External Patch, apply 1 patch to the affected area daily 12 hrs on 12 hrs off, # 30, RF: 0 Continue current medication regime. OARRS was reviewed today. UDS was performed today and will be reviewed on the next encounter to monitor pt medications compliance SOAPP score is 3 Pt is being seen by Dr Chappell for her neck pain, he is considering nerve impingement MRI of the cervical spine was reviewed with the pt today and they appear to understand MRI of brain is to be repeated this month There are no signs of diversion or addiction with the pt, there is also no signs of abuse or misuse, continues to do well with their medications without any side effects, we will continue monitoring the pt closely. Reviewed with the pt today our opioid agreement and they appear to understand. PEG was reviewed today. Life style modifications were also discussed today and the pt appears to understand. Weight loss was recommended today through diet and exercise Risks and benefits of the above meds were discussed with the pt and they appear to understand. The common side effects of the medications were discussed and all of their questions and concerns were answered and they appear to understand Discussed natural and expected course of this diagnosis and need to alert me if symptoms do not follow expected course, or if any worse. Pt is to continue with her PT and HEP. Pt has tried multiple modalities, the pt is scheduled for a right cervical radio frequency ablation C4-C7 under fluoroscopy as the pt has had excellent relief from this procedure in the past however, the relief has subsided. We have discussed the risks, benefits as well as alternatives of the procedure and the patient appears to understand and would like to proceed with the above plan. The above plan was discussed today with the pt in details and they appear to understand and agrees to continue with the plan. PROVIDED: Patient Education (05/23/2021)
[2021-06-12] MEDS: Lactated Ringers 1,000 ML 15 ML IV (08:31)
[2021-06-12] MEDS: Bupivacaine 0.25% 30 ML Vial (09:09)
[2021-06-12] MEDS: MethylPREDNISolone Acetate 40 MG/ML Vial IM (09:09)
[2021-06-12] MEDS: Lidocaine 1% (30 ml sdv) 30 ML Vial (09:10)
--- NOTE | 2021-06-12 09:16 | RAD_ITS ---
STUDY: X-RAY - CERVICAL SPINE REASON FOR EXAM: Female, 46 years old. RADIO FREQ ABLATION C4-C7, RIGHT COMPARISON: None FINDINGS: Fluoroscopic views were obtained for intraoperative localization. Please refer to intraoperative report. RAD/Cerv Spine 4 or 5 Views IMPRESSION: Intraoperative localization. Electronically Signed: Rufino Cabrera MD at 10:27 EST Tel , Service support ,
--- NOTE | 2021-06-12 11:18 | OP.PCM_ITS ---
Report of Operation Date of Procedure: 06/12/21 Description of Surgical Findings:: PREOPERATIVE DIAGNOSIS: Cervical spondylosis, cervical degenerative disc disease, cervical facet arthropathy POSTOPERATIVE DIAGNOSIS: Cervical spondylosis, cervical degenerative disc disease, cervical facet arthropathy PROCEDURE PERFORMED: Right-sided radiofrequency ablation of the medial branch at C4, C5, C6, and C7. ANESTHESIA: MAC. BLOOD LOSS: Minimal. COMPLICATIONS: None. DESCRIPTION OF PROCEDURE: History and physical of today was reviewed. Risks and benefits of the procedure were explained. The patient understood and agreed to proceed. Informed consent was obtained. IV inserted per routine protocol. The patient was taken to the operating room and placed in the prone position with a pillow positioned underneath the chest. The neck area was prepped and draped in a sterile fashion using iodine x3. Under fluoroscopy guidance on an AP view, the C4 through C7 vertebral bodies were visualized. The skin and subcutaneous tissue was anesthetized with approximately 10 mL of 1% lidocaine using a 25-gauge regular needle. Under direct visualization on fluoroscopy on a lateral view, using a 21-gauge 10-cm with a 10-mm curved active-tip radiofrequency ablation needle, the needle was passed through the skin. The tip of the needle was maneuvered and directed towards the epiphyseal junction of each corresponding vertebra, starting on the right C4, ending on the right C7, passing through the C5 and C6. Once the tip of the needle was at the vicinity of the medial branch and at the middle of the trapezoid on the lateral view, the stylette of each needle was then removed. After negative aspiration of blood or CSF and confirmation on AP, oblique as well as lateral view, radiofrequency ablation probe was then inserted at each level. Impedance was then recorded at C4 to be 292 ohm, at C5 to be 284 ohm, at C6 to be 261 ohm, and at C7 to be 266 ohm. Motor-evoked potential was then initiated to 1.5 volt without any motor re sponse to each corresponding level or the right arm. The probe was then removed intact and a total of 4 mL of preservative-free 1% lidocaine was injected in divided doses between those four levels after negative aspiration of blood or CSF. After repeated confirmation, the radiofrequency ablation probe was then inserted and after repeated confirmation on AP, oblique as well as lateral view, radiofrequency ablation was then initiated to approximately 80 degree Celsius for 60 second at each level. Once concluded, the probe was then removed intact. A total of 4 mL of preservative-free 0.25% Marcaine with 40 mg of Depo-Medrol was injected in divided doses between those four levels. The needles were then removed intact. The patient experienced no sign or symptoms of intrathecal or intravascular injection. The patient experienced no paresthesia. The procedure was completed without any apparent difficulty or any complications. The patient appeared to tolerate it well. Sensory as well as motor exam was unchanged from prior to the procedure. ASSESSMENT AND PLAN: This is a 46-year-old female with cervical spondylosis, cervical degenerative disc disease, cervical facet arthropathy, status post right-sided cervical radiofrequency ablation of the medial branch C4-C7, patient will continue her current medications, patient will follow in approximately 2 weeks for reevaluation.
== END 2021-06-12 23:59 | disposition home or self-care (01) ==
LOC: SDC 08:03 → AC 08:05
PROVIDERS: PCP Family Medicine Sports Medicine; Referring Provider Anesthesiology Pain Medicine; Visit Provider Anesthesiology Pain Medicine
PROC: (CPT 64633; principal; 2021-06-12 09:25)
DX: M47.22 Other spondylosis with radiculopathy, cervical region (principal); D68.51 Activated protein C resistance; M48.02 Spinal stenosis, cervical region; Z79.899 Other long term (current) drug therapy; M25.511 Pain in right shoulder; M79.7 Fibromyalgia; M47.812 Spondylosis without myelopathy or radiculopathy, cervical region; M50.30 Other cervical disc degeneration, unspecified cervical region; Z86.718 Personal history of other venous thrombosis and embolism
CPT/HCPCS: 64633; 64634; 72050; 76000; J7120; J2405

== ENCOUNTER 2021-07-16 14:01 | Emergency (ER) | payer OTHER, SELFPAY ==
[2021-07-16 14:03] VITALS: BP 131/87; PULSE 101; RESP 17; TEMP 36.4; O2SAT 92; BMI 40.8
--- NOTE | 2021-07-16 14:20 | CT_ITS ---
STUDY: CT ABDOMEN AND PELVIS WITH CONTRAST REASON FOR EXAM: Female, 46 years old. abdominal pain RADIATION DOSAGE (If Supplied By Facility): CTDIvol = ( 18.30 ) mGy, DLP = ( 1356.47 ) mGycm TECHNIQUE: Transaxial images were obtained from the dome of the diaphragm to the symphysis pubis without oral contrast. IV 100mL Isovue-300 was administered. Sagittal and coronal images were reconstructed. Individualized dose optimization techniques were used for this CT. COMPARISON: None. FINDINGS: The visualized lung bases are unremarkable. Left lower lobe granulomatous 5 mm and 8 mm nodular present. The visualized portions of the heart are within normal limits. Normal liver. There is non-visualization of the gallbladder, which may be secondary to either contraction or a prior cholecystectomy. Normal spleen. Normal pancreas. Normal bilateral adrenal glands. Normal right kidney. Normal left kidney. Normal visualized stomach. Normal small intestine. Normal colon. The appendix is visualized and appears normal. Normal abdominal aorta. Normal inferior vena cava. Normal retroperitoneum. Normal urinary bladder. There is absence of the uterus consistent with a prior hysterectomy. Normal abdominal wall. Normal osseous structures. CT/Abdomen/Pelvis W IV Cont ONLY IMPRESSION: No evidence of acute intra-abdominal process or focal inflammation. Normal appendix. Electronically Signed: Ata Reis DO at 16:58 EST ,
--- NOTE | 2021-07-16 14:25 | ED.VIS.GI ---
HPI <MAGNO Romero - Last Filed: 07/16/21 17:28> HPI - GI History of Present Illness Chief Complaint: Abd Pain Narrative Narrative: 46-year-old female with PMH of HTN, migraines, diverticulitis presents with 5-day history of abdominal pain and constipation. She states she normally takes Colace with Percocet she is prescribed for chronic shoulder pain. However, over the last 5 days she has not been able to have a bowel movement and is not passing gas. Pain is worse with eating and is nauseated without vomiting. She has used laxatives and enemas without relief. Denies history of bowel obstruction. She states she had diverticulitis with a microperforation and a hysterectomy. PFSH <MAGNO Romero - Last Filed: 07/16/21 17:28> PFSH Home Medications temazepam [Restoril] 30 mg PO QHS 08/23/18 [History Last Taken 09/17/19] apixaban 5 mg PO BID 03/25/20 [History Last Taken 08/11/20] cyclobenzaprine 10 mg PO TID PRN PRN 03/25/20 [History Last Taken Unknown] gabapentin 400 mg PO BID 03/25/20 [History Last Taken Unknown] duloxetine [Cymbalta] 120 mg PO DAILY 10/10/20 [History Last Taken Unknown] clonazepam [Klonopin] 1 mg PO BID 07/16/21 [History Last Taken Unknown] gabapentin 800 mg PO QHS 07/16/21 [History Last Taken Unknown] hydrochlorothiazide 25 mg PO DAILY 07/16/21 [History Last Taken Unknown] lidocaine 1 patch TOPICAL PRN PRN 07/16/21 [History Last Taken Unknown] lorazepam [Ativan] 1 mg PO PRN PRN 07/16/21 [History Last Taken Unknown] ondansetron 4 mg PO PRN PRN 07/16/21 [History Last Taken Unknown] oxycodone 5 mg PO PRN PRN 07/16/21 [History Last Taken Unknown] topiramate [Topamax] 50 mg PO BID 07/16/21 [History Last Taken Unknown] Allergy/AdvReac Type Severity Reaction Status Date / Time Iodinated Contrast Media Allergy Other Verified 06/12/21 08:17 [Iodinated Contrast Media - IV Dye] morphine Allergy Swelling Verified 06/12/21 08:17 terbutaline sulfate Allergy Other Verified 06/12/21 08:17 [From Brethine] metoclopramide [From Reglan] AdvReac Other Verified 07/16/21 14:03 Social History Smoking Status: Never smoker ROS <MAGNO Romero - Last Filed: 07/16/21 17:28> ROS ED ROS Narrative Constitutional: Negative for fever, chills, malaise. Eyes: Negative for visual change. ENT: Negative for sore throat, ear pain, rhinorrhea. CVS: Negative for palpitations, chest pain, syncope. Respiratory: Negative for shortness of breath, cough, orthopnea. GI: Positive for abdominal pain, nausea, constipation. Negative for vomiting, diarrhea, melena, hematochezia. : Negative for dysuria, hematuria or frequency. Neuro: Negative for headache, motor/sensory dysfunction. Skin: Negative for rash, abscess, or wound. Heme: Negative for easy bruising, bleeding, lymphadenopathy. EXAM <MAGNO Romero - Last Filed: 07/16/21 17:28> Physical Exam Narrative Exam Narrative: CONST: Patient sitting in no acute distress. EYES: Normal inspection. ENT: Normal inspection, moist mucous membranes. NECK: Normal inspection. RESP: No respiratory distress, CTAB. CVS: Regular rate and rhythm, no murmur, no gallop. ABD: Soft with diffuse tenderness maximal in RLQ, no guarding or rebound, nondistended. Back: Normal inspection, no CVA tenderness. SKIN: Color normal, no rash, warm, dry, intact. EXTREMITIES: Normal appearance, no pedal edema. NEURO: Oriented x4. PSYCH: Normal affect. Const Vital Signs: 07/16/21 14:03 Temperature 97.6 F L Temperature Source Temporal Pulse Rate 101 H Respiratory Rate 17 Blood Pressure 131/87 H Blood Pressure Mean 101 Pulse Ox 92 Oxygen Delivery Method Room Air <Dr. Parker Pinzon DO - Last Filed: 07/16/21 21:35> Physical Exam Const Vital Signs: 07/16/21 14:03 Temperature 97.6 F L Temperature Source Temporal Pulse Rate 101 H Respiratory Rate 17 Blood Pressure 131/87 H Blood Pressure Mean 101 Pulse Ox 92 Oxygen Delivery Method Room Air MDM <MAGNO Romero - Last Filed: 07/16/21 17:28> MDM MDM Narrative Medical decision making narrative: Patient presents with abdominal pain and constipation. She appears well nontoxic. Vital signs are within normal limits. She has a soft abdomen with diffuse tenderness and no peritoneal signs. Labs show mild leukocytosis at 11 and hypokalemia of 3.1, otherwise unremarkable. UA is negative for infection. CT abdomen/pelvis shows no acute process but does have increased stool density on ED attending review. She will be prescribed magnesium citrate for constipation. She was counseled on signs that would warrant return and was discharged in stable condition. Diagnoses 1. Abdominal pain 2. Constipation Lab Data Labs: Laboratory Results - last 24 hr 07/16/21 07/16/21 07/16/21 14:25 14:33 14:33 WBC 11.2 H RBC 4.66 Hgb 13.0 Hct 38.7 MCV 83.0 MCH 27.9 MCHC 33.6 RDW Std Deviation 40.5 RDW Coeff of Mauro 13.5 Plt Count 445 MPV 9.1 Immature Gran % (Auto) 0.400 Neut % (Auto) 55.3 Lymph % (Auto) 35.3 [place] % (Auto) 5.5 Eos % (Auto) 3.1 Baso % (Auto) 0.4 Absolute Neuts (auto) 6.2 Absolute Lymphs (auto) 3.94 Nucleated RBC % 0 Sodium 136 Potassium 3.1 L Chloride 98 Carbon Dioxide 32.0 Anion Gap 6 BUN 9 Creatinine 0.78 Estim Creat Clear Calc 85.77 Est GFR (MDRD) Af Amer 101 Est GFR (MDRD) Non-Af 83 BUN/Creatinine Ratio 11.5 Glucose 97 Calcium 9.0 Urine Color Straw Urine Clarity Clear Urine pH 7.0 Ur Specific [place] 1.005 Urine Protein Negative Urine Glucose (UA) Normal Urine Ketones Negative Urine Occult Blood Negative Urine Nitrite Negative Urine Bilirubin Negative Urine Urobilinogen Normal Ur Leukocyte Esterase Negative Urine RBC 0 SEEN Urine WBC 0 SEEN Ur Squamous Epith Cells 0-5 SEEN Urine Bacteria 0 SEEN Urine Mucus 0 SEEN Radiography Diagnostic Testing: Clinical Impression(s) from Imaging Studies Abdomen/Pelvis CT 07/16/21 14:20 IMPRESSION: No evidence of acute intra-abdominal process or focal inflammation. Normal appendix. Electronically Signed: Ata Reis DO at 16:58 EST , <Dr. Parker Pinzon, DO - Last Filed: 07/16/21 21:35> [facility] Narrative Medical decision making narrative: Patient seen and evaluated with the PA. I agree with her history and physical exam. Patient having very mild tenderness but abdomen is nonperitoneal. We obtained blood work which is fairly unremarkable. Her CBC does show a slight leukocytosis 11.2 without a left shift. Urinalysis is negative. CT of the abdomen pelvis was performed and is negative for acute intra-abdominal process. Patient still having some discomfort. I had a long discussion with her about constipation and she states that she has been trying enemas at home but not been able to have any more significant bowel movements. Patient will be given magnesium citrate to try at home since her work-up is ultimately negative. She is given return precautions. Impression: 1. Abdominal pain Lab Data Attestation: I reviewed the patient's lab results. Labs: Laboratory Results - last 24 hr 07/16/21 07/16/21 07/16/21 14:25 14:33 14:33 WBC 11.2 H RBC 4.66 Hgb 13.0 Hct 38.7 MCV 83.0 MCH 27.9 MCHC 33.6 RDW Std Deviation 40.5 RDW Coeff of Mauro 13.5 Plt Count 445 MPV 9.1 Immature Gran % (Auto) 0.400 Neut % (Auto) 55.3 Lymph % (Auto) 35.3 [place] % (Auto) 5.5 Eos % (Auto) 3.1 Baso % (Auto) 0.4 Absolute Neuts (auto) 6.2 Absolute Lymphs (auto) 3.94 Nucleated RBC % 0 Sodium 136 Potassium 3.1 L Chloride 98 Carbon Dioxide 32.0 Anion Gap 6 BUN 9 Creatinine 0.78 Estim Creat Clear Calc 85.77 Est GFR (MDRD) Af Amer 101 Est GFR (MDRD) Non-Af 83 BUN/Creatinine Ratio 11.5 Glucose 97 Calcium 9.0 Urine Color Straw Urine Clarity Clear Urine pH 7.0 Ur Specific [place] 1.005 Urine Protein Negative Urine Glucose (UA) Normal Urine Ketones Negative Urine Occult Blood Negative Urine Nitrite Negative Urine Bilirubin Negative Urine Urobilinogen Normal Ur Leukocyte Esterase Negative Urine RBC 0 SEEN Urine WBC 0 SEEN Ur Squamous Epith Cells 0-5 SEEN Urine Bacteria 0 SEEN Urine Mucus 0 SEEN Radiography Diagnostic Testing: Clinical Impression(s) from Imaging Studies Abdomen/Pelvis CT 07/16/21 14:20 IMPRESSION: No evidence of acute intra-abdominal process or focal inflammation. Normal appendix. Electronically Signed: Ata Reis DO at 16:58 EST Reading Location ID and State: [facility] / [place] , Service support , Discharge Plan Triage Chief Complaint: Abd Pain ED Provider: Isabella Benítez Dx/Rx/DC Orders Instructions: ED Abdominal Pain Unkn Cause Fem, ED Constipation (Adult) Prescriptions: No Action temazepam [Restoril] 30 MG capsule 30 mg PO QHS RF: 0 cyclobenzaprine 10 MG tablet 10 mg PO TID PRN PRN (Reason: Pain 1-10 Or Fever) RF: 0 gabapentin 100 MG capsule 400 mg PO BID RF: 0 apixaban 5 MG tablet 5 mg PO BID RF: 0 duloxetine [Cymbalta] 30 mg Capsule,Delayed Release(Dr/Ec) 120 mg PO DAILY RF: 0 gabapentin 400 mg capsule 800 mg PO QHS RF: 0 clonazepam [Klonopin] 1 mg Tablet 1 mg PO BID RF: 0 lidocaine 5 % adhesive patch,medicated 1 patch topical PRN PRN (Reason: Pain) RF: 0 hydrochlorothiazide 25 mg Tablet 25 mg PO DAILY RF: 0 lorazepam [Ativan] 1 mg Tablet 1 mg PO PRN PRN (Reason: Anxiety) RF: 0 ondansetron 4 mg tablet,disintegrating 4 mg PO PRN PRN (Reason: Nausea) RF: 0 oxycodone 5 mg tablet 5 mg PO PRN PRN (Reason: Pain) RF: 0 topiramate [Topamax] 50 mg Tablet 50 mg PO BID RF: 0 Primary Care Provider: Liliane Hahn Referrals: Liliane Hahn MD [Primary Care Provider] - Disposition Disposition: Home, Self Care Discharge Date/Time: 07/16/21 17:35
[2021-07-16] MEDS: Morphine 4 MG/ML Syringe IV (14:32)
[2021-07-16] MEDS: Ondansetron 4 MG/2 ML Vial IV ×2 (14:32→15:43)
[2021-07-16] MEDS: 0.9% Normal Saline 1,000 ML 1000 ML IV (14:34)
[2021-07-16 14:40] LABS: Bacteria 0 SEEN /hpf (None Seen); Mucous, Urine 0 SEEN /hpf (<or=2+); Red Blood Cells-Urine 0 SEEN /hpf (0-5); White Blood Cells 0 SEEN /hpf (0-5)
[2021-07-16 14:42] LABS: Absolute Lymphocyte Count 3.94 X10^3/uL (0.83-4.51); Absolute Neutrophil Count 6.2 X10^3/uL (2.0-7.7); Basophil# 0.05 X10^3/uL; Basophil% 0.4 % (0-1); Eosinophil# 0.35 X10^3/uL; Eosinophils% 3.1 % (0-5); Hematocrit 38.7 % (37-47); Lymphocyte # 3.94 X10^3/ul (0.83-4.51); Lymphocyte % 35.3 % (19-41); Mean Corp Hgb Conc 33.6 g/dL (32-36); Mean Corpuscular Hgb 27.9 pg (27.0-32.0); Mean Platelet Vol. 9.1 fl (6.2-12.0); Monocyte# 0.61 X10^3/uL; Monocyte% 5.5 % (0-10); NRBC Flagged by Analyzer 0 % (0-5); Neutrophil # 6.15 X10^3/uL (2.7-7.7); Neutrophil % 55.3 % (47-70); Platelet Count 445 K/mm3 (150-450); RBC Distribution Width CV 13.5 % (11.6-14.6); RBC Distribution Width SD 40.5 fl (35.1-43.9); Red Blood Count 4.66 M/mm3 (4.2-5.4); White Blood Count 11.2 K/mm3 (4.4-11.0)
[2021-07-16 14:43] LABS: Color, Urine Straw (Yellow); Glucose, Dipstick Normal (Normal); Ketone-Dipstick Negative (Negative); Leukocyte Esterase-Dipstick Negative /ul (Negative); Nitrite-Dipstick Negative (Negative); Occult Blood-Urine Negative /ul (Negative); Protein-Dipstick Negative (Negative); Specific Gravity, Urine 1.005 (1.002-1.030); Urine Bilirubin Dipstick Negative (Negative); Urine Clarity Clear (Clear); Urine Urobilinogen Normal (Normal)
[2021-07-16 14:48] LABS: Squamous Epithelial Cells - UA 0-5 SEEN /hpf (5-10)
[2021-07-16 14:56] LABS: Anion Gap 6 (5-15); BUN 9 mg/dL (7-18); BUN/Creat Ratio 11.5 RATIO (10-20); Chloride 98 mmol/L (98-107); Creatinine, Serum 0.78 mg/dL (0.55-1.02); EST Glomerular Filtration Rate 83 mL/min (>60); Est Glom Filt Rate - Afr Amer 101 mL/min (>60); Estimated Creatinine Clearance 85.77 ml/min; Glucose 97 mg/dL (74-106); Potassium 3.1 mmol/L (3.5-5.1); Sodium Level 136 mmol/L (136-145)
[2021-07-16] MEDS: DiphenhydrAMINE 50 MG/ML Syringe 25 MG IV (15:20)
[2021-07-16] MEDS: Magnesium Citrate 300 ML PO (17:33)
== END 2021-07-16 17:35 | disposition home or self-care (01) ==
PROVIDERS: Emergency Provider Physician Assistant; PCP Family Medicine Sports Medicine; Visit Provider Physician Assistant
DX: R10.9 Unspecified abdominal pain (principal); M25.519 Pain in unspecified shoulder; R11.0 Nausea; R10.819 Abdominal tenderness, unspecified site; I10 Essential (primary) hypertension; E87.6 Hypokalemia; G89.29 Other chronic pain
CPT/HCPCS: 74177; 80048; 81001; 85025; 96361; 96374; 96375; 96376; 99283; J7030; Q9967; A4216; J2405

== ENCOUNTER 2021-07-17 06:03 | Day surgery (SDC) | payer OTHER, SELFPAY ==
[2021-07-17] VITALS (7 sets, daily range): BP systolic 94–118; BP diastolic 47–70; PULSE 83–89; RESP 16–18; TEMP 36.7–37.2; O2SAT 92–94; BMI 40.8
[2021-07-17] MEDS: Lactated Ringers 1,000 ML 15 ML IV (07:01)
--- NOTE | 2021-07-17 07:30 | RAD_ITS ---
PROCEDURE: Left C4-C7 radiofrequency ablation. DATE OF EXAMINATION: 07/17/2021. INDICATION: Female, 46 years old. Chronic neck pain. FLUOROSCOPY TIME (if supplied): (13 seconds) minutes/seconds. 12 images were obtained. Intraoperative imaging provided for left C4-C7 radiofrequency ablation. RAD/Cerv Spine 4 or 5 Views IMPRESSION: Intraoperative imaging provided for left C4-C7 radiofrequency ablation. Electronically Signed: Issa Win MD at 14:53 EST ,
[2021-07-17] MEDS: Bupivacaine 0.25% 30 ML Vial (07:36)
[2021-07-17] MEDS: MethylPREDNISolone Acetate 40 MG/ML Vial IM (07:36)
[2021-07-17] MEDS: Lidocaine 1% (30 ml sdv) 30 ML Vial (07:36)
--- NOTE | 2021-07-17 08:29 | OP.PCM_ITS ---
Report of Operation Date of Procedure: 07/17/21 Description of Surgical Findings:: PREOPERATIVE DIAGNOSIS: Cervical spondylosis, cervical degenerative disc disease, cervical facet arthropathy POSTOPERATIVE DIAGNOSIS: Cervical spondylosis, cervical degenerative disc disease, cervical facet arthropathy PROCEDURE PERFORMED: Left-sided radiofrequency ablation of the medial branch at C4, C5, C6, and C7. ANESTHESIA: MAC. BLOOD LOSS: Minimal. COMPLICATIONS: None. DESCRIPTION OF PROCEDURE: History and physical of today was reviewed. Risks and benefits of the procedure were explained. The patient understood and agreed to proceed. Informed consent was obtained. IV inserted per routine protocol. The patient was taken to the operating room and placed in the prone position with a pillow positioned underneath the chest. The neck area was prepped and draped in a sterile fashion using iodine x3. Under fluoroscopy guidance on an AP view, the C4 through C7 vertebral bodies were visualized. The skin and subcutaneous tissue was anesthetized with approximately 10 mL of 1% lidocaine using a 25-gauge regular needle. Under direct visualization on fluoroscopy on a lateral view, using a 21-gauge 10-cm with a 10-mm curved active-tip radiofrequency ablation needle, the needle was passed through the skin. The tip of the needle was maneuvered and directed towards the epiphyseal junction of each corresponding vertebra, starting on the left C4, ending on the left C7, passing through the C5 and C6. Once the tip of the needle was at the vicinity of the medial branch and at the middle of the trapezoid on the lateral view, the stylette of each needle was then removed. After negative aspiration of blood or CSF and confirmation on AP, oblique as well as lateral view, radiofrequency ablation probe was then inserted at each level. Impedance was then recorded at C4 to be 265 ohm, at C5 to be 266 ohm, at C6 to be 245 ohm, and at C7 to be 316 ohm. Motor-evoked potential was then initiated to 1.5 volt without any motor response to each corresponding level or the left arm. The probe was then removed intact and a total of 4 mL of preservative-free 1% lidocaine was injected in divided doses between those four levels after negative aspiration of blood or CSF. After repeated confirmation, the radiofrequency ablation probe was then inserted and after repeated confirmation on AP, oblique as well as lateral view, radiofrequency ablation was then initiated to approximately 80 degree Celsius for 60 second at each level. Once concluded, the probe was then removed intact. A total of 4 mL of preservative-free 0.25% Marcaine with 40 mg of Depo-Medrol was injected in divided doses between those four levels. The needles were then removed intact. The patient experienced no sign or symptoms of intrathecal or intravascular injection. The patient experienced no paresthesia. The procedure was completed without any apparent difficulty or any complications. The patient appeared to tolerate it well. Sensory as well as motor exam was unchanged from prior to the procedure. ASSESSMENT AND PLAN: This is a 46-year-old female with cervical spondylosis, cervical degenerative di sc disease, cervical facet arthropathy status post left-sided cervical radiofrequency ablation of the medial branch C4-C7, patient will continue her current medications, patient will follow in approximately 2 weeks for reevaluation.
== END 2021-07-17 23:59 | disposition home or self-care (01) ==
LOC: SDC 06:04 → AC 06:05
PROVIDERS: PCP Family Medicine Sports Medicine; Referring Provider Anesthesiology Pain Medicine; Visit Provider Anesthesiology Pain Medicine
PROC: (CPT 64634; principal; 2021-07-17 07:25)
DX: M47.812 Spondylosis without myelopathy or radiculopathy, cervical region (principal); D68.2 Hereditary deficiency of other clotting factors; M50.30 Other cervical disc degeneration, unspecified cervical region; Z86.718 Personal history of other venous thrombosis and embolism; Z79.899 Other long term (current) drug therapy
CPT/HCPCS: 64634; 64633; 72050; 76000; J7120; J2405

== ENCOUNTER 2021-10-23 06:43 | Day surgery (SDC) | payer OTHER, SELFPAY ==
[2021-10-23 07:07] VITALS: BP 118/60; PULSE 87; RESP 18; TEMP 36.2; O2SAT 97; BMI 39.2
[2021-10-23] MEDS: Lactated Ringers 1,000 ML 15 ML IV (07:25)
--- NOTE | 2021-10-23 08:30 | RAD_ITS ---
STUDY: X-RAY - CERVICAL SPINE REASON FOR EXAM: Female, 46 years old. Cervical epidural. TECHNIQUE: 2 view(s) of the cervical spine were obtained. COMPARISON: None FINDINGS: Intraoperative imaging provided for cervical epidural. RAD/Spine 1 View Any Level IMPRESSION: Intraoperative imaging provided for cervical epidural. Electronically Signed: Issa Win MD at 13:03 EDT ,
[2021-10-23] MEDS: MethylPREDNISolone Acetate 80 MG/ML Vial (08:31)
[2021-10-23 09:02] VITALS: BP 118/60; BP 99/76; PULSE 81; RESP 15; TEMP 37.1; O2SAT 94
--- NOTE | 2021-10-23 12:23 | OP.PCM_ITS ---
Report of Operation Date of Procedure: 10/23/21 Description of Surgical Findings:: PREOPERATIVE DIAGNOSES: Cervical radiculopathy, cervical degenerative disc disease, cervical spinal stenosis POSTOPERATIVE DIAGNOSES: Cervical radiculopathy, cervical degenerative disc disease, cervical spinal stenosis PROCEDURE PERFORMED: Cervical epidural steroid injection, interlaminar at C7-T1 under fluoroscopic guidance. ANESTHESIA: Local. BLOOD LOSS: Minimal. COMPLICATIONS: None. DESCRIPTION OF PROCEDURE: History and physical of today was reviewed. Risks and benefits of the procedure were explained. The patient understood and agreed to proceed. Informed consent was obtained. IV inserted per routine protocol. The patient was taken to the operating room and placed in the prone position with a pillow positioned underneath the chest. The neck area was prepped and draped in a sterile fashion using iodine x3. Under fluoroscopy guidance on an AP view, the C7-T1 interlaminar space was identified. The skin and subcutaneous tissue was anesthetized with approximately 3 mL of 1% lidocaine using a 25-gauge regular needle. Under direct visualization on fluoroscopy, on AP view, using a 20-gauge 2-1/2-inch Tuohy needle, the needle was advanced via the skin. The tip of the needle was maneuvered and directed towards the interlaminar space at C7- T1. Loss of resistance technique was carried to air. Loss of resistance technique was encountered. Once encountered, after negative aspiration for blood and CSF, a total of 1 mL of contrast was injected to confirm correct placement of the needle as well as cephalocaudal spread of the contrast. Confirmation was obtained on AP as well as lateral view. After repeated negative aspiration and confirmation, a total of 3 mL of preservative-free normal saline and 80 mg of Depo-Medrol was injected easily. The needle was then removed intact. The patient experienced no sign or symptoms of intrathecal or intravascular injection. The patient experienced no paresthesia. The procedure was completed without any apparent difficulty or any complications. The patient appeared to tolerate it well. ASSESSMENT AND PLAN: This is a 46-year-old female with cervical radiculopathy, cervical degenerative disc disease, cervical spinal stenosis status post cervical epidural steroid injection interlaminar at C7-T1 under fluoroscopic guidance, patient will continue current medications, patient will follow in approximately 2 weeks for reevaluation
== END 2021-10-23 09:06 | disposition home or self-care (01) ==
LOC: SDC 06:45 → AC 06:47
PROVIDERS: PCP Family Medicine Sports Medicine; Referring Provider Anesthesiology Pain Medicine; Visit Provider Anesthesiology Pain Medicine
PROC: 3E0S3BZ Introduction of Anesthetic Agent into Epidural Space, Percutaneous Approach (ICD-10-PCS; CPT 62320; principal; 2021-10-23 08:05)
DX: M48.02 Spinal stenosis, cervical region (principal); D68.2 Hereditary deficiency of other clotting factors; M50.10 Cervical disc disorder with radiculopathy, unspecified cervical region; F41.9 Anxiety disorder, unspecified; M79.7 Fibromyalgia; Z87.442 Personal history of urinary calculi; Z86.718 Personal history of other venous thrombosis and embolism
CPT/HCPCS: 62321; 64490; 72020; J7120

== ENCOUNTER 2022-02-14 12:49 | Emergency (ER) | payer OTHER, SELFPAY ==
[2022-02-14 12:51] VITALS: BP 139/98; PULSE 98; RESP 18; TEMP 37.1; O2SAT 99; BMI 38.0
--- NOTE | 2022-02-14 13:47 | CT_ITS ---
STUDY: CT CERVICAL SPINE WITHOUT CONTRAST REASON FOR EXAM: Female, 46 years old. Injury/Pain, right arm symptoms RADIATION DOSAGE (If Supplied By Facility): CTDIvol = ( 27.48 ) mGy, DLP = ( 657.11 ) mGycm TECHNIQUE: High resolution transaxial imaging was performed without contrast material. Sagittal and coronal images were reconstructed. Individualized dose optimization techniques were used for this CT. COMPARISON: None FINDINGS: Normal craniovertebral junction. Normal anterior atlantoaxial articulation. Normal odontoid process. There is straightening of the normal cervical lordosis. Normal vertebral bodies and posterior osseous elements. C2-3: Normal endplates. Normal disc height and morphology. Normal central canal and intervertebral neuroforamina. C3-4: Normal endplates. Normal disc height and morphology. Normal central canal and intervertebral neuroforamina. C4-5: Normal endplates. Normal disc height and morphology. Normal central canal and intervertebral neuroforamina. C5-6: Mild degree of disc space narrowing with mild anterior spondylosis. C6-7: Mild degree of disc space narrowing and anterior spondylosis. C7-T1: Normal endplates. Normal disc height and morphology. Normal central canal and intervertebral neuroforamina. Normal visualized soft tissue structures. CT/Spine Cervical without Contras IMPRESSION: Multilevel degenerative changes, as described above. Electronically Signed: Issa Win MD at 14:22 EDT ,
--- NOTE | 2022-02-14 13:47 | CT_ITS ---
STUDY: CT BRAIN WITHOUT CONTRAST REASON FOR EXAM: Female, 46 years old. Head injury, on Eliquis RADIATION DOSAGE (If Supplied By Facility): CTDIvol = ( 44.99 ) mGy, DLP = ( 779.24 ) mGycm TECHNIQUE: Transaxial CT imaging of the brain was performed without administration of intravenous contrast material. Individualized dose optimization techniques were used for this CT. COMPARISON: Comparison is made with prior study dated 08/27/2014. FINDINGS: Normal soft tissue structures. Normal calvarium. Normal size ventricles and extra-axial spaces for the patient''s age. Normal white matter tracts of the cerebral hemispheres. Normal basal ganglia and thalami. Normal brainstem. Normal cerebellum. There is no intracranial hemorrhage. There are no findings of an acute ischemic infarction. Mucosal thickening of the inferior aspect of the right maxillary sinus. CT/Brain/Head without Contrast IMPRESSION: Mucosal thickening of the right maxillary sinus. No acute abnormality is seen. Electronically Signed: Issa Win MD at 14:19 EDT ,
[2022-02-14] MEDS: diazePAM 5 MG Tablet PO (14:28)
--- NOTE | 2022-02-14 15:01 | EX.ED.GENINJ ---
HPI History of Present Illness Chief Complaint: Other, Pain/Inj Informant: patient Narrative Narrative: 46-year-old female with chronic pain, fibromyalgia and factor V Leiden on chronic Eliquis therapy presenting for right-sided neck and shoulder pain with pain rating down to her right arm. Patient is actually scheduled to have an epidural injection in [address] Aguilar her pain management doctor. She states about a week ago she hit her head and the side of her neck on the car frame. No loss of conscious. She states she immediately had pain in her right shoulder and arm that went down to her hand and it took her to her knees. She notes since then she has had numbness and tingling of her first and third finger. Denies any weakness or dropping things. She tried to get in sooner with her pain doctor but was not able to. She came in because the pain just so bad and she states she cannot function. Denies any vision changes. No other complaints at this time. Patient is currently off of her Eliquis in anticipation of her neck injection on Saturday. [facility] Medical History Arthritis Cholecystectomy planned DVT (deep venous thrombosis) Factor V Leiden History of diverticulitis Migraine headache Pituitary adenoma Home Medications apixaban 5 mg tablet 5 mg PO BID 03/25/20 [History Last Taken 07/14/21] cyclobenzaprine 10 mg tablet 10 mg PO TID PRN PRN Pain 1-10 Or Fever 03/25/20 [History Last Taken Unknown] gabapentin 100 mg capsule 400 mg PO DAILY 03/25/20 [History Last Taken Unknown] gabapentin 400 mg capsule 800 mg PO QHS 07/16/21 [History Last Taken Unknown] lidocaine 5 % topical patch 1 patch topical PRN PRN Pain 07/16/21 [History Last Taken Unknown] lorazepam 1 mg tablet (Ativan) 1 mg PO PRN PRN Anxiety 07/16/21 [History Last Taken Unknown] ondansetron 4 mg disintegrating tablet 4 mg PO PRN PRN Nausea 07/16/21 [History Last Taken Unknown] oxycodone 5 mg tablet 5 mg PO PRN PRN Pain 07/16/21 [History Last Taken Unknown] semaglutide 0.25 mg or 0.5 mg (2 mg/1.5 mL) subcutaneous pen injector (Ozempic) 0.25 mg subcut QWEEK 10/23/21 [History Last Taken Unknown] diazepam 5 mg tablet (Valium) 5 mg PO TID PRN muscle spasm #9 tabs 02/14/22 [Rx Last Taken Unknown] Allergy/AdvReac Type Severity Reaction Status Date / Time Iodinated Contrast Media Allergy Other Verified 02/14/22 12:53 [Iodinated Contrast Media - IV Dye] morphine Allergy Swelling Verified 02/14/22 12:53 terbutaline sulfate Allergy Other Verified 02/14/22 12:53 [From Brethine] metoclopramide [From Reglan] AdvReac Other Verified 02/14/22 12:53 Surgical History H/O tubal ligation History of cardiac radiofrequency ablation History of hysterectomy Social History Smoking Status: Never smoker ROS ROS ED Constitutional Constitutional ED: Denies chills or fever(s) Eyes Eyes: Denies blurry vision or change in vision ENT ENT ED: Denies sore throat Cardiovascular Cardiovascular: Denies chest pain or palpitations Respiratory/Chest Respiratory/Chest: Denies cough Gastrointestinal Gastrointestinal: Denies abdominal pain, nausea or vomiting Musculoskeletal Musculoskeletal: Reports neck pain and other Details: Right shoulder pain Integumentary Denies Abrasions or rash Neurologic Neurologic: Reports paresthesias; Denies headache(s) or weakness Psychiatric Psychiatric: Denies anxiety Hematologic/Lymphatic Hematologic/Lymphatic: Reports easy bleeding and easy bruising EXAM Physical Exam Const Vital Signs: 02/14/22 12:51 02/14/22 15:08 Temperature 98.7 F Temperature Source Temporal Pulse Rate 98 84 Respiratory Rate 18 18 Blood Pressure 139/98 H 122/76 H Blood Pressure Mean 111 Pulse Ox 99 Oxygen Delivery Method Room Air Positive well nourished and well developed General Appearance ED: well developed and NAD HEENT Reports TM's clear atraumatic Tympanic Membrane ED: Yes TM's clear Eyes PERRL and EOMs intact bilaterally Neck full ROM Neck Narrative: Mild right paraspinal tenderness palpation. No midline tenderness to palpation. Chest Wall inspection of chest normal Resp normal respiratory effort and clear to auscultation bilaterally Cardio regular rhythm and no murmurs Rate: regular rate GI normal to inspection, nondistended, normoactive bowel sounds Back/Spine Thoracic Spine / Upper Back: Negative for thoracic spinal tenderness Extremity normal to inspection Extremity Narrative: No pinpoint bony tenderness. Normal family service counselor strength bilaterally. Patient has a hard time abducting her fourth and fifth finger together on the right. She has subjective paresthesias of the third and first fingers on the right side. Sensation is intact to light touch. Normal movement of the wrist however wrist movement does exacerbate her hand symptoms. No bony tenderness of the elbow or shoulder. Patient does have significant tenderness palpation of the superior posterior right shoulder over the trapezius muscle. Neuro oriented x3, moves all extremities, no focal motor deficits and no sensory deficits noted Skin no rashes or lesions noted and no wounds MDM MDM MDM Narrative Medical decision making narrative: Patient is evaluated for increased pain and some radicular symptoms to her hands. She is on chronic anticoagulation and did not injure her head and neck about a week ago so I did obtain a CT of the head and C-spine. This is negative for any acute intracranial process. Patient is counseled that there is a risk of a missed epidural hematoma since we did not use IV contrast however given that she is not had any recent instrumentation and she has reproducible trapezius pain and spasm is likely causing her radiculopathy she is comfortable with this. Patient is given Valium and IM Dilaudid as she is allergic to morphine. Will be discharged home with a short course of Valium. We will follow-up with her pain management doctor in 2 days as scheduled. We will continue to use heat and Lidoderm patches. Patient discharged home in stable condition. Radiography Diagnostic Testing: Clinical Impression(s) from Imaging Studies Brain CT 02/14/22 13:47 IMPRESSION: Mucosal thickening of the right maxillary sinus. No acute abnormality is seen. Electronically Signed: Issa Win MD at 14:19 EDT , Cervical Spine CT 02/14/22 13:47 IMPRESSION: Multilevel degenerative changes, as described above. Electronically Signed: Issa Win MD at 14:22 EDT , Discharge Plan Triage Chief Complaint: Other, Pain/Inj ED Provider: Yessy Cervantes Dx/Rx/DC Orders Clinical Impression: Trapezius muscle spasm, Radiculopathy affecting upper extremity Instructions: ED Muscle Spasm, ED Radiculopathy, Cervical Prescriptions: New diazepam [Valium] 5 mg tablet 5 mg PO TID PRN (Reason: muscle spasm) Qty: 9 0RF No Action cyclobenzaprine 10 MG tablet 10 mg PO TID PRN PRN (Reason: Pain 1-10 Or Fever) gabapentin 100 MG capsule 400 mg PO DAILY apixaban 5 MG tablet 5 mg PO BID gabapentin 400 mg capsule 800 mg PO QHS Label Comments: TAKE 1 CAPSULE BY MOUTH IN THE MORNING AND 2 CAPSULES IN EVENING lidocaine 5 % adhesive patch,medicated 1 patch topical PRN PRN (Reason: Pain) Label Comments: APPLY 1 PATCH TO THE AFFECTED AREA DAILY 12 HOURS ON 12 HOURS OFF lorazepam [Ativan] 1 mg Tablet 1 mg PO PRN PRN (Reason: Anxiety) ondansetron 4 mg tablet,disintegrating 4 mg PO PRN PRN (Reason: Nausea) Label Comments: TAKE 1 TABLET BY MOUTH EVERY 8 HOURS NEEDED oxycodone 5 mg tablet 5 mg PO PRN PRN (Reason: Pain) Label Comments: TAKE 1 TABLET BY MOUTH UP TO TWICE A DAY NEEDED FOR BTP Ozempic 0.25 mg or 0.5 mg(2 mg/1.5 mL) Pen Injector 0.25 mg SUBCUT QWEEK Primary Care Provider: Liliane Hahn Referrals: Liliane Hahn MD [Primary Care Provider] - Activity Restrictions/Additional Instructions: Continue taking Tylenol and your pain medicine already prescribed. Do heat and Lidoderm patches to your neck/back. Follow-up with your pain management doctor on Saturday as scheduled. Disposition Disposition: Home, Self Care
[2022-02-14] MEDS: HYDROmorphone 0.5 MG/0.5 ML SYRINGE IM (15:05)
[2022-02-14 15:08] VITALS: BP 122/76; PULSE 84; RESP 18
== END 2022-02-14 15:34 | disposition home or self-care (01) ==
PROVIDERS: Emergency Provider Emergency Medicine; PCP Family Medicine Sports Medicine; Visit Provider Emergency Medicine
DX: M62.838 Other muscle spasm (principal); D68.51 Activated protein C resistance; M47.20 Other spondylosis with radiculopathy, site unspecified; G89.29 Other chronic pain; Z79.01 Long term (current) use of anticoagulants; M79.7 Fibromyalgia; Z86.718 Personal history of other venous thrombosis and embolism
CPT/HCPCS: 70450; 72125; 99284

== ENCOUNTER → 2022-05-16 | Outpatient (CLI) | payer OTHER, SELFPAY ==
--- NOTE | 2022-05-16 15:35 | MRI_ITS ---
STUDY: MRI CERVICAL SPINE WITHOUT CONTRAST REASON FOR EXAM: Female, 47 years old. Neck pain. Right upper extremity pain and weakness. TECHNIQUE: Standardized fat and water weighted pulse sequences were obtained in the sagittal and axial planes. COMPARISON: CT cervical spine 02/14/2022. FINDINGS: Normal vertebral alignment and signal. Mild reversal cervical lordosis. Benign vertebral body hemangioma incidentally noted in C7. Normal contour and signal of the cervical spinal cord. At C3-4, right uncovertebral joint osteophytes moderately narrow the right foramen, indenting the exiting right C4 nerve root. Only mild narrowing of the left foramen and spinal canal. No significant spinal canal or foraminal narrowing at other levels. Multilevel mild disc desiccation but no protrusions. Paraspinal soft tissues are unremarkable. MRI/Spine Cervical (Routine) IMPRESSION: At C3-4, right uncovertebral joint osteophytes moderately narrow the right foramen, indenting the exiting right C4 nerve root. Electronically Signed: Carloz Martinez MD at 5:54 EST Reading Location ID and State: [facility] ID Tel , Service support ,
== END | disposition home or self-care (01) ==
LOC: MRI 15:28
PROVIDERS: PCP Family Medicine Sports Medicine; Referring Provider Nurse Practitioner Family; Visit Provider Nurse Practitioner Family
DX: M48.9 Spondylopathy, unspecified (principal); M54.12 Radiculopathy, cervical region; M48.02 Spinal stenosis, cervical region; M47.812 Spondylosis without myelopathy or radiculopathy, cervical region; M50.30 Other cervical disc degeneration, unspecified cervical region
CPT/HCPCS: 72141